=== PATIENT | male | born 1980 | race American Indian/Alaskan Native ===

== ENCOUNTER 2017-11-12 16:36 | Emergency (ER) | payer SELFPAY ==
[2017-11-12 16:53] VITALS: BP 114/71
== END 2017-11-12 19:45 | disposition left against medical advice (07) ==
LOC: ED 16:36
DX: B86 Scabies (principal); Z53.21 Procedure and treatment not carried out due to patient leaving prior to being seen by health care provider

== ENCOUNTER 2019-03-24 15:45 | Emergency (ER) | payer SELFPAY ==
[2019-03-24 16:22] VITALS: BP 117/75
--- NOTE | 2019-03-24 16:24 | Emergency Department Report ---
Blank Doc - Documentation Documentation: 38 y/o male c/o of 1 week of dysuria and possible with possible STD exposure. No fever or chills. No sweats. No Rash. No abdominal pain. No testicular pain. This patient presents with dysuria//discharge and a history consistent with possible STI. Differential includes simple cystitis, pyelonephritis, epididymitis. Will advise on health department
== END 2019-03-24 18:00 | disposition left against medical advice (07) ==
LOC: ED 15:45
DX: R30.9 Painful micturition, unspecified (principal); Z53.21 Procedure and treatment not carried out due to patient leaving prior to being seen by health care provider